=== PATIENT | male | born 1995 | race African-American/Black ===

== ENCOUNTER 2022-07-28 23:30 | Emergency (ER) | payer OTHER ==
[~2022-07-28] VITALS: Ht 170.2 cm; Wt 90.9 kg
[2022-07-28 23:42] VITALS: BP 132/82
[2022-07-28 23:49] LABS: COVID AG,FIA SOURCE NASAL SWAB
[2022-07-29 00:28] LABS: RAPID GROUP A STREP POSITIVE (NEGATIVE)
[2022-07-29 00:36] LABS: INFLUENZA TYPE A NEGATIVE FOR TYPE A (NEGATIVE); INFLUENZA TYPE B NEGATIVE FOR TYPE B (NEGATIVE)
[2022-07-29] MEDS ORDERED: PENICILLIN G BENZATHINE LA 1,200,000 UNITS/2 ML SYRINGE IM ONE (01:00)
[2022-07-29] MEDS ORDERED: IBUPROFEN 600 MG TABLET PO ONE (01:00)
== END 2022-07-29 01:08 | disposition home or self-care (01) ==
LOC: EMS 23:30
DX: J02.9 Acute pharyngitis, unspecified (principal); Z20.822 Contact with and (suspected) exposure to COVID-19
CPT/HCPCS: 99283; 87426; 87430; 87804; 96372; J0561